=== PATIENT | female | born 1955 | race Caucasian/White ===

== ENCOUNTER 2016-08-04 18:01 | Emergency (ER) | payer MEDICARE, OTHER | END 2016-08-04 19:15 | disposition home or self-care (01) | LOC: ER 18:01 | DX: S61.412A Laceration without foreign body of left hand, initial encounter (principal); I10 Essential (primary) hypertension; J45.909 Unspecified asthma, uncomplicated; K27.9 Peptic ulcer, site unspecified, unspecified as acute or chronic, without hemorrhage or perforation; Z88.2 Allergy status to sulfonamides; Z88.5 Allergy status to narcotic agent; Z23 Encounter for immunization; W23.0XXA Caught, crushed, jammed, or pinched between moving objects, initial encounter; Y92.009 Unspecified place in unspecified non-institutional (private) residence as the place of occurrence of the external cause | CPT/HCPCS: 90471 ==

== ENCOUNTER 2016-08-15 18:45 | Emergency (ER) | payer MEDICARE, OTHER | END 2016-08-15 19:58 | disposition home or self-care (01) | LOC: ER 18:45 | DX: S61.412D Laceration without foreign body of left hand, subsequent encounter (principal); L08.9 Local infection of the skin and subcutaneous tissue, unspecified; Z88.2 Allergy status to sulfonamides; Z88.5 Allergy status to narcotic agent; Z79.899 Other long term (current) drug therapy; X58.XXXD Exposure to other specified factors, subsequent encounter | CPT/HCPCS: 96372 ==